=== PATIENT | female | born 1955 | race Asian ===

== ENCOUNTER 2022-08-06 22:57 | Inpatient (IN) | payer OTHER ==
[~2022-08-06] VITALS: Ht 157.5 cm; Wt 60.8 kg
[2022-08-06] MEDS ORDERED: MORPHINE SULFATE 4 MG/ML CPJ (NOT FOR IM USE) IV STA (23:11)
[2022-08-06] MEDS ORDERED: ONDANSETRON HCL 4MG/2ML INJ IV STA (23:11)
[2022-08-06] MEDS ORDERED: ETOMIDATE 2MG/ML 10ML VIAL IV ONE (23:15)
[2022-08-06] MEDS ORDERED: VECURONIUM BROMIDE 10 MG/VIAL IV ONE (23:15)
[2022-08-06] MEDS ORDERED: PROPOFOL 10MG/ML 100ML 100 ML IV ONE (23:15)
[2022-08-06 23:33] LABS: BASOPHILS % 0.4 % (0.0-2.0); EOSINOPHILS % 1.5 % (0.0-5.0); HEMATOCRIT. 42.8 % (36.0-48.0); HEMOGLOBIN. 13.8 g/dL (12.0-16.0); LYMPHOCYTES % 31.3 % (20.0-50.0); MEAN CORPUSCULAR HEMOGLOBIN 30.1 pg (28.0-32.0); MEAN CORPUSCULAR VOLUME 93.5 fL (81.0-99.0); MEAN PLATELET VOLUME 9.6 fl (7.4-10.4); MONOCYTES % 7.9 % (2.0-8.0); NEUTROPHILS % 58.9 % (40.0-76.0); PLATELET 183 x1000/uL (130-400); RED BLOOD CELL COUNT 4.58 mill/uL (4.2-5.4); RED CELL DISTRIBUTION WIDTH 14.3 % (11.6-14.6)
[2022-08-06 23:38] LABS: CHLORIDE 103 mEq/L (98-107)
[2022-08-07] VITALS (56 sets, daily range): BP systolic 68–175; BP diastolic 35–133
[2022-08-07] MEDS ORDERED: NITROGLYCERIN 50MG PREMIX 250 ML IV ONE
[2022-08-07] MEDS ORDERED: FENTANYL 2500MCG/250ML PMX 250 ML IV ONE (00:30)
[2022-08-07] MEDS ORDERED: FENTANYL 2500MCG/250ML PMX 250 ML IV NR (00:45)
[2022-08-07] MEDS ORDERED: NITROGLYCERIN 50MG PREMIX 250 ML IV NR (00:45)
[2022-08-07 03:19] LABS: BG SAMPLE SITE RIGHT RADIAL; BG TIDAL VOLUME(mL) 350 mL; BG VENT MODE VENT - AC; BG VENT RATE 16 set
[2022-08-07 03:20] LABS: BG FRACTION INSPIRED OXYGEN 60
[2022-08-07 03:21] LABS: BG BASE EXCESS -3.6 mmol/L (-2.0-2.0); BG HCO3 ACT 25.8 mmol/L (22.0-26.0); BG PH 7.204 (7.350-7.450); BG PO2 77.8 mmHg (75.0-100.0)
[2022-08-07 03:22] LABS: BG CARBOXYHEMOGLOBIN 0.9 % (0.5-1.5); BG OXYGEN SATURATION 92.4 % (92.0-98.5); BG OXYHEMOGLOBIN 91.2 % (94.0-97.0); BG TOTAL HEMOGLOBIN 14.2 g/dL (12.0-18.0)
[2022-08-07 03:23] LABS: BG DEOXYHEMOGLOBIN 7.5 % (0.0-5.0); BG METHEMOGLOBIN 0.4 % (0.0-1.5)
[2022-08-07] MEDS ORDERED: HEPARIN 5000 UNITS/ML VIAL IV ONE (03:30)
[2022-08-07] MEDS ORDERED: HEPARIN 25,000 UNITS PREMIX 250 ML IV ONE (03:30)
[2022-08-07 05:15] LABS: PARTIAL THROMBOPLASTIN TIME 22.5 sec (23.4-31.0); PROTHROMBIN TIME 10.8 sec (9.6-11.0)
[2022-08-07] MEDS ORDERED: HEPARIN 5000 UNITS/ML VIAL IV NR (05:30)
[2022-08-07] MEDS ORDERED: HEPARIN 25,000 UNITS PREMIX 250 ML IV NR (05:30)
[2022-08-07] MEDS ORDERED: PROPOFOL 10MG/ML 100ML 100 ML IV PRN (10:30)
[2022-08-07] MEDS ORDERED: LIDOCAINE HCL 1% 30ML VIAL (10MG/ML) ONE (10:52)
[2022-08-07] MEDS: PHENYLEPHRINE 100 MG in DEXT 5% WATER 240 ML IV PRN (12:00)
[2022-08-07] MEDS ORDERED: VANCOMYCIN 1G PREMIX 200 ML IV SCH (12:45)
[2022-08-07] MEDS ORDERED: BLOOD SUGAR DIAGNOSTIC STRIP TEST SCH (12:45)
[2022-08-07] MEDS ORDERED: INSULIN LISPRO 100 UNITS/ML SUBCUT SCH (12:45)
[2022-08-07] MEDS ORDERED: DEXTROSE 50% WATER 50ML SYRINGE IV PRN (12:45)
[2022-08-07] MEDS ORDERED: ONDANSETRON HCL 4MG/2ML INJ IV PRN (12:45)
[2022-08-07] MEDS ORDERED: PIPERACILLIN/TAZ 3.375G PREMIX 50 ML IV SCH (12:45)
[2022-08-07 12:57] LABS: BG BASE EXCESS 1.2 mmol/L (-2.0-2.0); BG CARBOXYHEMOGLOBIN 0.3 % (0.5-1.5); BG HCO3 ACT 27.2 mmol/L (22.0-26.0); BG METHEMOGLOBIN 0.3 % (0.0-1.5); BG OXYHEMOGLOBIN 98.4 % (94.0-97.0); BG PCO2 48.7 mmHg (35.0-45.0); BG PH 7.365 (7.350-7.450); BG PO2 183.7 mmHg (75.0-100.0); BG SAMPLE SITE RIGHT RADIAL; BG TOTAL HEMOGLOBIN 12.5 g/dL (12.0-18.0); BG VENT MODE VENT - AC
[2022-08-07] MEDS: PANTOPRAZOLE SODIUM 40 MG/VIAL IV SCH (13:09)
[2022-08-07] MEDS: ACETAMINOPHEN 325MG TABLET PO PRN (13:09)
[2022-08-07] MEDS ORDERED: PIPERACILLIN/TAZOBACTAM 3.375G in DEXT 5% WATER 50ML IV SCH (14:00)
[2022-08-07] MEDS ORDERED: VANCOMYCIN 1250MG in DEXTROSE 5% WATER 250ML IV NR (14:00)
[2022-08-07 16:02] LABS: CLARITY URINE CLOUDY (CLEAR); COLOR URINE DARK YELLOW (YELLOW); KETONES URINE TRACE (NEGATIVE); LEUKOCYTE ESTERASE URINE NEGATIVE (NEGATIVE); NITRITE URINE NEGATIVE (NEGATIVE); OCCULT BLOOD URINE 3+ (NEGATIVE); PROTEIN URINE 2+ (NEGATIVE); SPECIFIC GRAVITY URINE 1.021 (1.005-1.030); UROBILINOGEN URINE 0.2 E.U./dL (0.2-1.0)
[2022-08-07] MEDS ORDERED: METO-385 MT (16:55)
[2022-08-07] MEDS ORDERED: CLOP75TA33 MT (16:55)
[2022-08-07] MEDS ORDERED: SACU1TAB7 MT (16:55)
[2022-08-07] MEDS ORDERED: FURO40TA5 PO (16:55)
[2022-08-07] MEDS ORDERED: CYCL5TAB MT (16:55)
[2022-08-07] MEDS ORDERED: TIZA4CAP6 PO (16:55)
[2022-08-07] MEDS ORDERED: NITR0.4T49 SL (16:55)
[2022-08-07] MEDS ORDERED: AZIT500T8 MT (16:55)
[2022-08-07] MEDS: METHYLPREDNISOLONE SOD SUCC 40 MG/ML VIAL IV SCH (17:25)
[2022-08-07] MEDS: INSULIN LISPRO 100 UNITS/ML SUBCUT SCH (17:26)
[2022-08-07] MEDS: BLOOD SUGAR DIAGNOSTIC STRIP TEST SCH (17:26)
[2022-08-07] MEDS ORDERED: HEPARIN BOLUS PRN aPTT <30 IV (18:00)
[2022-08-07] MEDS: SODIUM CHLORIDE 0.45% 1,000 ML IV SCH (18:29)
[2022-08-07 18:42] LABS: BASOPHILS % 0.3 % (0.0-2.0); HEMATOCRIT. 34.7 % (36.0-48.0); HEMOGLOBIN. 11.2 g/dL (12.0-16.0); LYMPHOCYTES % 14.5 % (20.0-50.0); MEAN CORPUSCULAR HEMOGLOBIN 29.9 pg (28.0-32.0); MEAN CORPUSCULAR VOLUME 92.5 fL (81.0-99.0); MEAN PLATELET VOLUME 9.5 fl (7.4-10.4); MONOCYTES % 7.1 % (2.0-8.0); NEUTROPHILS % 78.1 % (40.0-76.0); PLATELET 163 x1000/uL (130-400); RED BLOOD CELL COUNT 3.75 mill/uL (4.2-5.4); RED CELL DISTRIBUTION WIDTH 14.4 % (11.6-14.6)
[2022-08-07 18:56] LABS: CHLORIDE 103 mEq/L (98-107)
[2022-08-07 19:04] LABS: HDL CHOLESTEROL 49 mg/dL (40-59); LDL CHOLESTEROL 114 mg/dL (5-100)
[2022-08-07] MEDS: HEPARIN 25,000 UNITS PREMIX 250 ML IV SCH ×2 (21:40→23:11)
[2022-08-07] MEDS: PIPERACILLIN/TAZOBACTAM 3.375G in DEXT 5% WATER 50ML IV SCH (22:59)
[2022-08-07] MEDS: HEPARIN BOLUS PRN aPTT 30-44 IV (23:06)
[2022-08-08] VITALS (93 sets, daily range): BP systolic 89–139; BP diastolic 53–80
[2022-08-08] MEDS: INSULIN LISPRO 100 UNITS/ML SUBCUT SCH ×4 (01:07→18:16)
[2022-08-08] MEDS ORDERED: VANCOMYCIN 750MG PREMIX 150 ML IV SCH ×4 (03:00→12:00)
[2022-08-08] MEDS: BLOOD SUGAR DIAGNOSTIC STRIP TEST SCH ×4 (06:00→18:00)
[2022-08-08] MEDS: PIPERACILLIN/TAZOBACTAM 3.375G in DEXT 5% WATER 50ML IV SCH ×3 (06:17→22:06)
[2022-08-08] MEDS: METHYLPREDNISOLONE SOD SUCC 40 MG/ML VIAL IV SCH ×2 (06:17→18:09)
[2022-08-08] MEDS: IPRATROPIUM/ALBUTEROL 0.5-3(2.5)MG/3ML NEB HHN PRN ×3 (08:27→16:20)
[2022-08-08 08:32] LABS: BASOPHILS % 0.3 % (0.0-2.0); HEMATOCRIT. 35.2 % (36.0-48.0); HEMOGLOBIN. 11.4 g/dL (12.0-16.0); LYMPHOCYTES % 9.2 % (20.0-50.0); MEAN CORPUSCULAR HEMOGLOBIN 29.5 pg (28.0-32.0); MEAN CORPUSCULAR VOLUME 90.7 fL (81.0-99.0); MEAN PLATELET VOLUME 9.7 fl (7.4-10.4); MONOCYTES % 3.3 % (2.0-8.0); NEUTROPHILS % 87.2 % (40.0-76.0); PLATELET 144 x1000/uL (130-400); RED BLOOD CELL COUNT 3.89 mill/uL (4.2-5.4); RED CELL DISTRIBUTION WIDTH 14.5 % (11.6-14.6)
[2022-08-08 08:36] LABS: CHLORIDE 102 mEq/L (98-107)
[2022-08-08] MEDS: PANTOPRAZOLE SODIUM 40 MG/VIAL IV SCH (09:11)
[2022-08-08] MEDS: CLOPIDOGREL 75MG TABLET PO SCH (09:11)
[2022-08-08] MEDS ORDERED: FUROSEMIDE 40MG/4ML VIAL IVP NR (10:30)
[2022-08-08 10:37] LABS: BG BASE EXCESS 0.5 mmol/L (-2.0-2.0); BG CARBOXYHEMOGLOBIN 0.6 % (0.5-1.5); BG FRACTION INSPIRED OXYGEN 50; BG HCO3 ACT 27.3 mmol/L (22.0-26.0); BG METHEMOGLOBIN 0.2 % (0.0-1.5); BG OXYHEMOGLOBIN 96.2 % (94.0-97.0); BG PCO2 53.8 mmHg (35.0-45.0); BG PH 7.324 (7.350-7.450); BG SAMPLE SITE RIGHT RADIAL; BG TOTAL HEMOGLOBIN 12.6 g/dL (12.0-18.0); BG VENT MODE VENT - CPAP
[2022-08-08] MEDS: SODIUM CHLORIDE 0.45% 1,000 ML IV SCH (15:00)
[2022-08-08] MEDS: HEPARIN 25,000 UNITS PREMIX 250 ML IV SCH (15:02)
[2022-08-08 15:42] LABS: CREATINE KINASE 9771 IU/L (26-192)
[2022-08-08] MEDS: FENTANYL 2500MCG/250ML PMX 250 ML IV PRN (16:35)
[2022-08-08] MEDS: INSULIN GLARGINE 100 UNITS/ML SUBCUT SCH (22:08)
[2022-08-09] VITALS (91 sets, daily range): BP systolic 70–162; BP diastolic 45–88
[2022-08-09] MEDS: INSULIN LISPRO 100 UNITS/ML SUBCUT SCH ×4 (00:01→19:23)
[2022-08-09] MEDS: IPRATROPIUM/ALBUTEROL 0.5-3(2.5)MG/3ML NEB HHN PRN (00:18)
[2022-08-09 05:32] LABS: BASOPHILS % 0.1 % (0.0-2.0); HEMATOCRIT. 32.6 % (36.0-48.0); HEMOGLOBIN. 10.7 g/dL (12.0-16.0); LYMPHOCYTES % 7.6 % (20.0-50.0); MEAN CORPUSCULAR HEMOGLOBIN 29.9 pg (28.0-32.0); MEAN CORPUSCULAR VOLUME 90.9 fL (81.0-99.0); MEAN PLATELET VOLUME 10.2 fl (7.4-10.4); MONOCYTES % 3.1 % (2.0-8.0); NEUTROPHILS % 89.2 % (40.0-76.0); PLATELET 127 x1000/uL (130-400); RED BLOOD CELL COUNT 3.58 mill/uL (4.2-5.4); RED CELL DISTRIBUTION WIDTH 14.1 % (11.6-14.6)
[2022-08-09] MEDS: METHYLPREDNISOLONE SOD SUCC 40 MG/ML VIAL IV SCH ×2 (06:44→19:22)
[2022-08-09] MEDS: PIPERACILLIN/TAZOBACTAM 3.375G in DEXT 5% WATER 50ML IV SCH ×3 (06:44→22:00)
[2022-08-09] MEDS: BLOOD SUGAR DIAGNOSTIC STRIP TEST SCH ×4 (06:50→18:00)
[2022-08-09] MEDS: CLOPIDOGREL 75MG TABLET PO SCH (08:41)
[2022-08-09] MEDS: PANTOPRAZOLE SODIUM 40 MG/VIAL IV SCH (08:41)
[2022-08-09] MEDS ORDERED: FUROSEMIDE 40MG/4ML VIAL IVP NR (10:14)
[2022-08-09] MEDS: INSULIN GLARGINE 100 UNITS/ML SUBCUT SCH ×2 (10:19→22:00)
[2022-08-09] MEDS: PROPOFOL 10MG/ML 100ML 100 ML IV PRN ×2 (11:30→20:38)
[2022-08-09] MEDS ORDERED: INSULIN GLARGINE 100 UNITS/ML SUBCUT NR (14:27)
[2022-08-09] MEDS ORDERED: PROPOFOL 10MG/ML 100ML 100 ML IV PRN (19:15)
[2022-08-10] VITALS (94 sets, daily range): BP systolic 88–141; BP diastolic 52–88
[2022-08-10] MEDS: BLOOD SUGAR DIAGNOSTIC STRIP TEST SCH ×4 (01:00→17:43)
[2022-08-10] MEDS: PHENYLEPHRINE 100 MG in DEXT 5% WATER 240 ML IV PRN (02:00)
[2022-08-10] MEDS: FENTANYL 2500MCG/250ML PMX 250 ML IV PRN (02:03)
[2022-08-10 05:52] LABS: HEMATOCRIT. 32.9 % (36.0-48.0); HEMOGLOBIN. 10.9 g/dL (12.0-16.0); LYMPHOCYTES % 7.8 % (20.0-50.0); MEAN CORPUSCULAR HEMOGLOBIN 30.1 pg (28.0-32.0); MEAN CORPUSCULAR VOLUME 90.8 fL (81.0-99.0); MEAN PLATELET VOLUME 9.9 fl (7.4-10.4); MONOCYTES % 3.8 % (2.0-8.0); NEUTROPHILS % 88.4 % (40.0-76.0); PLATELET 165 x1000/uL (130-400); RED BLOOD CELL COUNT 3.63 mill/uL (4.2-5.4); RED CELL DISTRIBUTION WIDTH 14.3 % (11.6-14.6)
[2022-08-10] MEDS: METHYLPREDNISOLONE SOD SUCC 40 MG/ML VIAL IV SCH ×2 (06:12→17:42)
[2022-08-10] MEDS: PIPERACILLIN/TAZOBACTAM 3.375G in DEXT 5% WATER 50ML IV SCH ×3 (06:27→21:29)
[2022-08-10] MEDS: HEPARIN BOLUS PRN aPTT 30-44 IV (06:29)
[2022-08-10] MEDS: INSULIN LISPRO 100 UNITS/ML SUBCUT SCH ×4 (06:31→17:43)
[2022-08-10] MEDS: HEPARIN 25,000 UNITS PREMIX 250 ML IV SCH (08:04)
[2022-08-10] MEDS: CLOPIDOGREL 75MG TABLET PO SCH (08:54)
[2022-08-10] MEDS: ASPIRIN 81MG TABLET PO SCH (08:55)
[2022-08-10] MEDS: PANTOPRAZOLE SODIUM 40 MG/VIAL IV SCH (08:55)
[2022-08-10] MEDS: INSULIN GLARGINE 100 UNITS/ML SUBCUT SCH ×2 (09:08→21:50)
[2022-08-10 13:28] LABS: BG BASE EXCESS 4.9 mmol/L (-2.0-2.0); BG CARBOXYHEMOGLOBIN 0.3 % (0.5-1.5); BG DEOXYHEMOGLOBIN 2.3 % (0.0-5.0); BG FRACTION INSPIRED OXYGEN 50; BG HCO3 ACT 29.3 mmol/L (22.0-26.0); BG METHEMOGLOBIN 0.3 % (0.0-1.5); BG OXYGEN SATURATION 97.7 % (92.0-98.5); BG OXYHEMOGLOBIN 97.1 % (94.0-97.0); BG PCO2 42.8 mmHg (35.0-45.0); BG PH 7.454 (7.350-7.450); BG PO2 103.6 mmHg (75.0-100.0); BG SAMPLE SITE RIGHT RADIAL; BG TOTAL HEMOGLOBIN 11.9 g/dL (12.0-18.0); BG TOTAL RESPIRATORY RATE 20 b/min; BG VENT MODE VENT - AC
[2022-08-10 16:00] LABS: BG BASE EXCESS 3.9 mmol/L (-2.0-2.0); BG CARBOXYHEMOGLOBIN 0.3 % (0.5-1.5); BG DEOXYHEMOGLOBIN 1.4 % (0.0-5.0); BG FRACTION INSPIRED OXYGEN 50; BG HCO3 ACT 30.2 mmol/L (22.0-26.0); BG OXYGEN SATURATION 98.6 % (92.0-98.5); BG OXYHEMOGLOBIN 98.3 % (94.0-97.0); BG PH 7.373 (7.350-7.450); BG PO2 154.2 mmHg (75.0-100.0); BG SAMPLE SITE LEFT RADIAL; BG TOTAL RESPIRATORY RATE 11 b/min; BG VENT MODE VENT - SIMV
[2022-08-10] MEDS: PROPOFOL 10MG/ML 100ML 100 ML IV PRN (21:28)
[2022-08-11] VITALS (59 sets, daily range): BP systolic 47–157; BP diastolic 22–112
[2022-08-11] MEDS: BLOOD SUGAR DIAGNOSTIC STRIP TEST SCH ×4 (00:04→18:12)
[2022-08-11] MEDS: INSULIN LISPRO 100 UNITS/ML SUBCUT SCH ×4 (00:09→18:14)
[2022-08-11] MEDS: METHYLPREDNISOLONE SOD SUCC 40 MG/ML VIAL IV SCH ×2 (05:58→18:14)
[2022-08-11] MEDS: PIPERACILLIN/TAZOBACTAM 3.375G in DEXT 5% WATER 50ML IV SCH ×3 (05:58→21:31)
[2022-08-11] MEDS: PROPOFOL 10MG/ML 100ML 100 ML IV PRN (06:19)
[2022-08-11] MEDS: ASPIRIN 81MG TABLET PO SCH ×2 (08:44→09:00)
[2022-08-11] MEDS: IPRATROPIUM/ALBUTEROL 0.5-3(2.5)MG/3ML NEB HHN PRN (08:44)
[2022-08-11] MEDS: CLOPIDOGREL 75MG TABLET PO SCH (09:00)
[2022-08-11 09:23] LABS: BG BASE EXCESS 6.1 mmol/L (-2.0-2.0); BG CARBOXYHEMOGLOBIN 0.4 % (0.5-1.5); BG DEOXYHEMOGLOBIN 0.5 % (0.0-5.0); BG FRACTION INSPIRED OXYGEN 40; BG HCO3 ACT 30.5 mmol/L (22.0-26.0); BG METHEMOGLOBIN 0.1 % (0.0-1.5); BG OXYGEN SATURATION 99.5 % (92.0-98.5); BG PCO2 43.2 mmHg (35.0-45.0); BG PH 7.466 (7.350-7.450); BG PO2 312.8 mmHg (75.0-100.0); BG SAMPLE SITE RIGHT RADIAL; BG VENT MODE HHN TREATMENT
[2022-08-11] MEDS: FAMOTIDINE 20MG/2ML VIAL IV SCH (09:46)
[2022-08-11] MEDS: INSULIN GLARGINE 100 UNITS/ML SUBCUT SCH ×2 (09:46→21:33)
[2022-08-11] MEDS: FUROSEMIDE 40MG/4ML VIAL IVP SCH (15:27)
[2022-08-11] MEDS: METOPROLOL SUCCINATE 50MG ER TABLET PO SCH (15:28)
[2022-08-12] VITALS (37 sets, daily range): BP systolic 100–174; BP diastolic 50–114
[2022-08-12 05:51] LABS: BASOPHILS % 0.1 % (0.0-2.0); HEMATOCRIT. 36.9 % (36.0-48.0); HEMOGLOBIN. 12.2 g/dL (12.0-16.0); MEAN CORPUSCULAR HEMOGLOBIN 29.7 pg (28.0-32.0); MEAN CORPUSCULAR VOLUME 89.8 fL (81.0-99.0); MEAN PLATELET VOLUME 9.2 fl (7.4-10.4); MONOCYTES % 9.1 % (2.0-8.0); NEUTROPHILS % 81.8 % (40.0-76.0); PLATELET 180 x1000/uL (130-400); RED BLOOD CELL COUNT 4.11 mill/uL (4.2-5.4); RED CELL DISTRIBUTION WIDTH 14.2 % (11.6-14.6)
[2022-08-12] MEDS: INSULIN LISPRO 100 UNITS/ML SUBCUT SCH ×5 (06:00→23:27)
[2022-08-12] MEDS: BLOOD SUGAR DIAGNOSTIC STRIP TEST SCH ×5 (06:09→23:25)
[2022-08-12] MEDS: METHYLPREDNISOLONE SOD SUCC 40 MG/ML VIAL IV SCH ×2 (06:10→18:05)
[2022-08-12] MEDS: PIPERACILLIN/TAZOBACTAM 3.375G in DEXT 5% WATER 50ML IV SCH ×3 (06:10→22:35)
[2022-08-12] MEDS: IPRATROPIUM/ALBUTEROL 0.5-3(2.5)MG/3ML NEB HHN PRN (07:44)
[2022-08-12] MEDS: FAMOTIDINE 20MG/2ML VIAL IV SCH (08:55)
[2022-08-12] MEDS: FUROSEMIDE 40MG/4ML VIAL IVP SCH (08:55)
[2022-08-12] MEDS: METOPROLOL SUCCINATE 50MG ER TABLET PO SCH (08:56)
[2022-08-12] MEDS: CLOPIDOGREL 75MG TABLET PO SCH (08:56)
[2022-08-12] MEDS: ASPIRIN 81MG TABLET PO SCH (08:56)
[2022-08-12] MEDS ORDERED: RACEPINEPHRINE 2.25% 0.5ML NEB VIAL HHN PRN (09:00)
[2022-08-12] MEDS: INSULIN GLARGINE 100 UNITS/ML SUBCUT SCH ×2 (09:10→22:44)
[2022-08-12] MEDS: ACETAMINOPHEN 325MG TABLET PO PRN (11:21)
[2022-08-12] MEDS: LOSARTAN POTASSIUM 25 MG TABLET PO SCH (20:56)
[2022-08-12] MEDS: SPIRONOLACTONE 25MG TABLET PO SCH (20:56)
[2022-08-13] VITALS (21 sets, daily range): BP systolic 93–140; BP diastolic 44–73
[2022-08-13] MEDS: METHYLPREDNISOLONE SOD SUCC 40 MG/ML VIAL IV SCH ×2 (05:28→17:57)
[2022-08-13] MEDS: INSULIN LISPRO 100 UNITS/ML SUBCUT SCH ×4 (05:29→22:33)
[2022-08-13] MEDS: BLOOD SUGAR DIAGNOSTIC STRIP TEST SCH ×3 (05:29→17:59)
[2022-08-13] MEDS: PIPERACILLIN/TAZOBACTAM 3.375G in DEXT 5% WATER 50ML IV SCH ×3 (05:29→22:07)
[2022-08-13 05:32] LABS: BASOPHILS % 0.1 % (0.0-2.0); HEMATOCRIT. 36.7 % (36.0-48.0); HEMOGLOBIN. 11.8 g/dL (12.0-16.0); LYMPHOCYTES % 12.1 % (20.0-50.0); MEAN CORPUSCULAR HEMOGLOBIN 29.7 pg (28.0-32.0); MEAN CORPUSCULAR VOLUME 92.4 fL (81.0-99.0); MEAN PLATELET VOLUME 9.1 fl (7.4-10.4); MONOCYTES % 8.1 % (2.0-8.0); NEUTROPHILS % 79.7 % (40.0-76.0); PLATELET 173 x1000/uL (130-400); RED BLOOD CELL COUNT 3.97 mill/uL (4.2-5.4); RED CELL DISTRIBUTION WIDTH 14.3 % (11.6-14.6)
[2022-08-13] MEDS: ASPIRIN 81MG TABLET PO SCH (09:54)
[2022-08-13] MEDS: SPIRONOLACTONE 25MG TABLET PO SCH (09:54)
[2022-08-13] MEDS: FAMOTIDINE 20MG/2ML VIAL IV SCH (09:54)
[2022-08-13] MEDS: LOSARTAN POTASSIUM 25 MG TABLET PO SCH (09:55)
[2022-08-13] MEDS: METOPROLOL SUCCINATE 50MG ER TABLET PO SCH (09:55)
[2022-08-13] MEDS: CLOPIDOGREL 75MG TABLET PO SCH (09:55)
[2022-08-13] MEDS: INSULIN GLARGINE 100 UNITS/ML SUBCUT SCH ×2 (09:56→22:33)
[2022-08-13 09:58] LABS: CREATINE KINASE 972 IU/L (26-192)
[2022-08-13] MEDS ORDERED: REGADENOSON 0.4 MG/5 ML IV NR (10:00)
[2022-08-14] VITALS (9 sets, daily range): BP systolic 100–120; BP diastolic 50–75
[2022-08-14] MEDS: BLOOD SUGAR DIAGNOSTIC STRIP TEST SCH ×2 (06:00)
[2022-08-14] MEDS: INSULIN LISPRO 100 UNITS/ML SUBCUT SCH (06:00)
[2022-08-14] MEDS: PIPERACILLIN/TAZOBACTAM 3.375G in DEXT 5% WATER 50ML IV SCH (06:25)
[2022-08-14] MEDS: METHYLPREDNISOLONE SOD SUCC 40 MG/ML VIAL IV SCH (06:25)
[2022-08-14 06:26] LABS: BASOPHILS % 0.2 % (0.0-2.0); EOSINOPHILS % 0.3 % (0.0-5.0); HEMATOCRIT. 36.2 % (36.0-48.0); HEMOGLOBIN. 11.8 g/dL (12.0-16.0); LYMPHOCYTES % 15.9 % (20.0-50.0); MEAN CORPUSCULAR HEMOGLOBIN 29.6 pg (28.0-32.0); MEAN CORPUSCULAR VOLUME 90.7 fL (81.0-99.0); MEAN PLATELET VOLUME 9.1 fl (7.4-10.4); MONOCYTES % 9.3 % (2.0-8.0); NEUTROPHILS % 74.3 % (40.0-76.0); PLATELET 193 x1000/uL (130-400); RED CELL DISTRIBUTION WIDTH 14.1 % (11.6-14.6)
[2022-08-14] MEDS ORDERED: REGADENOSON 0.4 MG/5 ML IV ONE (07:58)
[2022-08-14] MEDS ORDERED: FUROSEMIDE 40MG TABLET PO SCH (09:00)
[2022-08-14] MEDS: INSULIN GLARGINE 100 UNITS/ML SUBCUT SCH (10:00)
[2022-08-14] MEDS: CLOPIDOGREL 75MG TABLET PO SCH (10:33)
[2022-08-14] MEDS: ASPIRIN 81MG TABLET PO SCH (10:33)
[2022-08-14] MEDS: METOPROLOL SUCCINATE 50MG ER TABLET PO SCH (10:34)
[2022-08-14] MEDS: SPIRONOLACTONE 25MG TABLET PO SCH (10:34)
[2022-08-14] MEDS: LOSARTAN POTASSIUM 25 MG TABLET PO SCH (10:34)
[2022-08-14] MEDS: FAMOTIDINE 20MG/2ML VIAL IV SCH (10:35)
[2022-08-14] MEDS ORDERED: THROAT LOZENGES-BENZOCAINE/MENTH/CETYLPYRD CL LOZENGES MM PRN (11:15)
[2022-08-14] MEDS ORDERED: FURO40TA5 PO (11:21)
[2022-08-14] MEDS ORDERED: METO-385 PO (11:21)
[2022-08-14] MEDS ORDERED: LOSA25TA3 PO (11:21)
[2022-08-14] MEDS ORDERED: SPIR25TA PO (11:21)
[2022-08-14] MEDS ORDERED: ASPI-1160 PO (11:21)
[2022-08-14] MEDS ORDERED: LANTUSUD SUBCUT (11:21)
[2022-08-14] MEDS ORDERED: P20 MT (11:21)
== END 2022-08-14 13:53 | disposition home or self-care (01) | DRG 870 ==
LOC: ER 23:22 → MICUSO 08-07 02:30 → EDBEDREQ 08-07 02:34 → MICUSO 08-07 17:42 → 5EST 08-13 16:13
PROVIDERS: ADMIT Internal Medicine; ATTEND Internal Medicine
PROC: 5A1955Z Respiratory Ventilation, Greater than 96 Consecutive Hours (ICD-10-PCS; principal; 2022-08-07)
PROC: 0BH17EZ Insertion of Endotracheal Airway into Trachea, Via Natural or Artificial Opening (ICD-10-PCS; 2022-08-07)
PROC: 5A09357 Assistance with Respiratory Ventilation, Less than 24 Consecutive Hours, Continuous Positive Airway Pressure (ICD-10-PCS; 2022-08-07)
PROC: 02HV33Z Insertion of Infusion Device into Superior Vena Cava, Percutaneous Approach (ICD-10-PCS; 2022-08-07)
PROC: B548ZZA Ultrasonography of Superior Vena Cava, Guidance (ICD-10-PCS; 2022-08-07)
DX: A41.9 Sepsis, unspecified organism (principal); J14 Pneumonia due to Hemophilus influenzae; R65.21 Severe sepsis with septic shock; J96.02 Acute respiratory failure with hypercapnia; J96.01 Acute respiratory failure with hypoxia; N17.0 Acute kidney failure with tubular necrosis; I21.4 Non-ST elevation (NSTEMI) myocardial infarction; I50.41 Acute combined systolic (congestive) and diastolic (congestive) heart failure; E87.20 Acidosis, unspecified; M62.82 Rhabdomyolysis; I42.9 Cardiomyopathy, unspecified; J44.0 Chronic obstructive pulmonary disease with (acute) lower respiratory infection; I13.0 Hypertensive heart and chronic kidney disease with heart failure and stage 1 through stage 4 chronic kidney disease, or unspecified chronic kidney disease; Z20.822 Contact with and (suspected) exposure to COVID-19; J44.9 Chronic obstructive pulmonary disease, unspecified; I44.7 Left bundle-branch block, unspecified; E11.65 Type 2 diabetes mellitus with hyperglycemia; E66.9 Obesity, unspecified; E11.22 Type 2 diabetes mellitus with diabetic chronic kidney disease; I25.10 Atherosclerotic heart disease of native coronary artery without angina pectoris; R74.01 Elevation of levels of liver transaminase levels; N18.9 Chronic kidney disease, unspecified; Z98.61 Coronary angioplasty status; Z79.02 Long term (current) use of antithrombotics/antiplatelets; Z68.24 Body mass index [BMI] 24.0-24.9, adult; Z79.899 Other long term (current) drug therapy; Z95.1 Presence of aortocoronary bypass graft
CPT/HCPCS: 31500; 36415; 36573; 36600; 71045; 76770; 78452; 80048; 80053; 80061; 80076; 81003; 82375; 82550; 82805; 82962; 83036; 83605; 83880; 84145; 84443; 84478; 84484; 85025; 85379; 86038; 86160; 86850; 86900; 87070; 87077; 87426; 87449; 87804; 92610; 93005; 93017; 93306; 93970; 94002; 94003; 97162; 97166; 97535; 99291; A9500; C1725; C9113; J1644; J1815; J1940; J2270; J2370; J2405; J2543; J2704; J2785; J2920; J3010; J3370; J3490; J7060; A4315